=== PATIENT | female | born 2000 | race Caucasian/White ===

== ENCOUNTER 2020-04-02 10:43 | Emergency (ER) | payer BC ==
[~2020-04-02] VITALS: Ht 172.7 cm; Wt 75.0 kg
[2020-04-02 10:49] VITALS: BP 135/86
== END 2020-04-02 11:26 | disposition home or self-care (01) ==
LOC: ER 10:44
DX: B34.9 Viral infection, unspecified (principal); J02.9 Acute pharyngitis, unspecified; R51.9 Headache, unspecified; H92.03 Otalgia, bilateral; Z20.828 Contact with and (suspected) exposure to other viral communicable diseases
CPT/HCPCS: 36415; 87635; 99283